=== PATIENT | male | born 1960 | race Hispanic/Latino ===

== ENCOUNTER → 2025-06-21 | Day surgery (SDC) | payer OTHER ==
[~2025-06-21] MED LIST: CELEBREX200 MG PO; HYOSCYAMINE SULFATE 0.5 MG/ML INJ ONE; LIDOCAINE HCL 2% LOCAL INJ 5 ML SDV VIAL INJ ONE; LISINOPRIL10 MG PO; PRENATAL 19 CH1 EACH; PROPOFOL IV EMULSION 50 ML IV ONE; ROSUVASTATIN CA20 MG PO
[2025-06-21] MEDS: LACTATED RINGER'S 1,000 ML ONE (07:06)
[2025-06-21 09:44] VITALS: TEMP 97.7
[2025-06-21 10:10] VITALS: BP 119/80; PULSE 79; RESP 18; O2SAT 97
== END | disposition home or self-care (01) ==
LOC: OR 06:10
PROVIDERS: ATTEND Internal Medicine Gastroenterology
DX: Z12.11 Encounter for screening for malignant neoplasm of colon (principal); K64.8 Other hemorrhoids; I10 Essential (primary) hypertension; E78.5 Hyperlipidemia, unspecified; Z79.1 Long term (current) use of non-steroidal anti-inflammatories (NSAID); Z79.899 Other long term (current) drug therapy; Z01.810 Encounter for preprocedural cardiovascular examination
CPT/HCPCS: 45378; 93005; J1980; J2003; J2704; J7121